=== PATIENT | female | born 1950 | race Caucasian/White ===

== ENCOUNTER 2024-10-20 14:37 | Inpatient (IN) | payer MEDICARE, OTHER ==
[~2024-10-20] VITALS: Ht 157.5 cm; Wt 59.8 kg
[2024-10-20 19:06] LABS: BASO # 0.1 10^3/uL (0.0-0.2); BASO % 1.0 % (0.0-1.0); EOS # 0.2 10^3/uL (0.0-0.5); EOS % 2.7 % (0.0-3.0); LYMPH # 1.7 10^3/uL (1.5-5.0); LYMPH % 22.7 % (24.0-44.0); MONO # 0.7 10^3/uL (0.0-0.8); MONO % 8.9 % (2.0-8.0); NEUTROPHILS # 4.7 10^3/uL (1.5-8.5); NEUTROPHILS % 64.6 % (36.0-66.0); PLATELET COUNT, AUTOMATED 289 10^3/uL (150-450)
[2024-10-20 19:26] LABS: INR 0.89
[2024-10-20 19:40] LABS: CALCIUM LEVEL 8.1 MG/DL (8.3-10.6); CARBON DIOXIDE LEVEL 28 MMOL/L (20-31); CHLORIDE LEVEL 104 MMOL/L (98-107); CREATININE FOR GFR 0.67 MG/DL (0.55-1.30); GLOMERULAR FILTRATION RATE > 90.0 (>39); POTASSIUM SERUM 4.2 MMOL/L (3.5-5.1); SODIUM LEVEL 141 MMOL/L (136-145)
[2024-10-20] MEDS ORDERED: GABA-1172 PO (20:06)
[2024-10-20] MEDS ORDERED: GABA-1171 PO (20:06)
[2024-10-20] MEDS ORDERED: MIRA3350 PO (20:06)
[2024-10-20] MEDS ORDERED: LIOT5TAB6 PO (20:06)
[2024-10-20] MEDS ORDERED: LEVO125T4 PO (20:06)
[2024-10-20] MEDS ORDERED: VYVA60CA PO (20:06)
[2024-10-20] MEDS ORDERED: FLUO40CA PO (20:10)
[2024-10-20] MEDS ORDERED: CALC-234 PO (20:10)
[2024-10-20] MEDS ORDERED: IBUP200T46 PO (20:10)
[2024-10-20] MEDS ORDERED: LAMO150T3 PO (20:10)
[2024-10-20] MEDS ORDERED: BISA10SU4 PR (20:10)
[2024-10-20] MEDS ORDERED: SUMA100T2 PO (20:11)
[2024-10-20] MEDS ORDERED: HOME MED LIST COMPLETE! XX SCH (20:15)
[2024-10-20] MEDS ORDERED: VYVA50CA4 PO (20:15)
[2024-10-20] MEDS ORDERED: BISACODYL 10 MG SUPP PR PRN (20:50)
[2024-10-20] MEDS ORDERED: NALOXONE INJ 0.4 MG/1 ML VIAL IV PRN (20:50)
[2024-10-20] MEDS ORDERED: MORPHINE 2 MG/ML 1 ML VIAL IV PRN (20:50)
[2024-10-20] MEDS ORDERED: GABAPENTIN 300 MG CAP PO SCH (21:00)
[2024-10-20 21:46] LABS: ALT/SGPT 24 U/L (7.0-40); AST/SGOT 27 U/L (<34); MAGNESIUM LEVEL 2.2 MG/DL (1.8-2.4)
[2024-10-20 21:49] LABS: THYROXINE (T4) 3.6 UG/DL (4.5-10.9)
[2024-10-20] MEDS: GABAPENTIN 400 MG CAP PO SCH (22:08)
[2024-10-20] MEDS: ACETAMINOPHEN *IV* 1,000 MG in IV 1 EA IV SCH (22:08)
[2024-10-20] MEDS: MORPHINE 4 MG/ML 1 ML VIAL IV PRN (22:17)
[2024-10-20 22:59] LABS: T UPTAKE 34.7 % (22.5-37.0)
[2024-10-21] VITALS (11 sets, daily range): BP systolic 111–144; BP diastolic 59–77; TEMP 97.2–97.6; O2SAT 91–99
[2024-10-21] MEDS: METHOCARBAMOL 1,000 MG/10 ML VIAL IV PRN (00:09)
[2024-10-21] MEDS ORDERED: LIOTHYRONINE 5 MCG PO SCH (06:00)
[2024-10-21] MEDS: LEVOTHYROXINE 125 MCG TABLET (0.125 MG) PO SCH (06:09)
[2024-10-21 06:37] LABS: PLATELET COUNT, AUTOMATED 284 10^3/uL (150-450)
[2024-10-21 06:51] LABS: ALT/SGPT 23.0 U/L (7.0-40); AST/SGOT 26.0 U/L (<34); CALCIUM LEVEL 8.3 MG/DL (8.3-10.6); CARBON DIOXIDE LEVEL 30.0 MMOL/L (20-31); CHLORIDE LEVEL 105.0 MMOL/L (98-107); CREATININE FOR GFR 0.71 MG/DL (0.55-1.30); GLOMERULAR FILTRATION RATE 88.6 (>39); MAGNESIUM LEVEL 2.2 MG/DL (1.8-2.4); POTASSIUM SERUM 4.3 MMOL/L (3.5-5.1); SODIUM LEVEL 141.0 MMOL/L (136-145)
[2024-10-21] MEDS: MIRALAX *UNIT DOSE* 17 GM PACKET PO SCH (08:00)
[2024-10-21] MEDS: FLUoxetine 20 MG CAP PO SCH (08:01)
[2024-10-21] MEDS: lamoTRIgine 100 MG TAB PO SCH (08:01)
[2024-10-21] MEDS: PANTOPRAZOLE 40MG VIAL IV SCH ×2 (08:50→20:15)
[2024-10-21] MEDS: CALCIUM CARBONATE 500 MG CHEW U/D PO ONE (08:50)
[2024-10-21] MEDS: KETOROLAC 30 MG/ML 1 ML VIAL IV SCH (08:51)
[2024-10-21] MEDS ORDERED: LIOTHYRONINE 25 MCG TAB PO SCH (09:00)
[2024-10-21] MEDS ORDERED: ENTER DRUG NAME HERE (PATIENT'S OWN MED) PO SCH (09:00)
[2024-10-21] MEDS: ACETAMINOPHEN *IV* 1,000 MG in IV 1 EA IV SCH (11:09)
[2024-10-21] MEDS: ROPIvacaine 0.5% 30ML VIAL PN ONE (14:20)
[2024-10-21] MEDS: dexAMETHasone 10 MG/1 ML VIAL PRES.FREE PN ONE (14:20)
[2024-10-21] MEDS ORDERED: HYDROMORPHONE HCL 0.5 MG/0.5 ML SYRINGE IV PRN (14:20)
[2024-10-21] MEDS: LIDOCAINE 1% SDV 5 ML VIAL PN ONE (14:20)
[2024-10-21] MEDS ORDERED: ONDANSETRON 4MG 2ML VIAL IV PRN (14:20)
[2024-10-21] MEDS ORDERED: dexAMETHasone 4 MG/ML 1 ML VIAL As Ordered ONE (14:35)
[2024-10-21] MEDS ORDERED: GLYCOPYRROLATE INJ 0.2 MG/ML 2 ML VIAL As Ordered ONE (14:35)
[2024-10-21] MEDS ORDERED: ONDANSETRON 4MG 2ML VIAL As Ordered ONE (14:35)
[2024-10-21] MEDS ORDERED: LIDOCAINE 2% 100 MG/5 ML SDV (FOR ANES.) As Ordered ONE (14:35)
[2024-10-21] MEDS: MIDAZOLAM INJ 2 MG/2 ML VIAL IV PRN (14:39)
[2024-10-21] MEDS ORDERED: KETOROLAC 30 MG/ML 1 ML VIAL As Ordered ONE (16:27)
[2024-10-21] MEDS: ASPIRIN 81 MG ENTERIC TABLET PO SCH (20:15)
[2024-10-22] VITALS (7 sets, daily range): BP systolic 116–146; BP diastolic 62–74; TEMP 97.2–97.6; O2SAT 92–96
[2024-10-22] MEDS: ceFAZolin SOD 1 GM in DEXTROSE 5% (D5W) ADV/MINI-BAG 50 ML IV SCH (00:24)
[2024-10-22 07:15] LABS: PLATELET COUNT, AUTOMATED 288 10^3/uL (150-450)
[2024-10-22 08:03] LABS: CALCIUM LEVEL 8.3 MG/DL (8.3-10.6); CARBON DIOXIDE LEVEL 27 MMOL/L (20-31); CHLORIDE LEVEL 102 MMOL/L (98-107); CREATININE FOR GFR 0.67 MG/DL (0.55-1.30); GLOMERULAR FILTRATION RATE > 90.0 (>39); POTASSIUM SERUM 5.0 MMOL/L (3.5-5.1); SODIUM LEVEL 138 MMOL/L (136-145)
[2024-10-22] MEDS: MORPHINE 4 MG/ML 1 ML VIAL IV PRN (16:33)
[2024-10-22] MEDS: DOCUSATE SODIUM 100 MG CAPSULE PO SCH (20:36)
[2024-10-22] MEDS: PANTOPRAZOLE 20 MG TAB PO SCH (20:36)
[2024-10-23 04:49] VITALS: BP 140/68; TEMP 97.1; O2SAT 96
[2024-10-23] MEDS: LIOTHYRONINE 5 MCG PO SCH (06:31)
[2024-10-23 07:01] LABS: PLATELET COUNT, AUTOMATED 278 10^3/uL (150-450)
[2024-10-23 07:26] LABS: CALCIUM LEVEL 8.4 MG/DL (8.3-10.6); CARBON DIOXIDE LEVEL 31.0 MMOL/L (20-31); CHLORIDE LEVEL 102.0 MMOL/L (98-107); CREATININE FOR GFR 0.77 MG/DL (0.55-1.30); GLOMERULAR FILTRATION RATE 80.4 (>39); POTASSIUM SERUM 4.4 MMOL/L (3.5-5.1); SODIUM LEVEL 140.0 MMOL/L (136-145)
[2024-10-23] MEDS: FLUCONAZOLE 100 MG TAB PO SCH (09:14)
[2024-10-23 12:55] VITALS: BP 140/67; TEMP 97.9; O2SAT 96
[2024-10-23] MEDS: ACETAMINOPHEN 500 MG TAB PO SCH (20:30)
[2024-10-23] MEDS: KETOROLAC TROMETHAMINE 10 MG TAB PO SCH (22:00)
[2024-10-24 06:13] VITALS: BP 126/65; TEMP 97.7; O2SAT 97
[2024-10-24 12:00] VITALS: BP 156/74; TEMP 97; O2SAT 97
[2024-10-24 20:44] VITALS: BP 154/108; TEMP 97.9; O2SAT 96
[2024-10-25 06:09] VITALS: BP 138/79; TEMP 97.9; O2SAT 95
[2024-10-25] MEDS ORDERED: COLA100C5 PO (08:00)
[2024-10-25] MEDS ORDERED: OXYC-517 PO (08:00)
[2024-10-25] MEDS ORDERED: FLUC100T3 PO (08:00)
[2024-10-25] MEDS ORDERED: ACET-683 PO (08:00)
[2024-10-25] MEDS ORDERED: ASPI81TAEC PO (08:00)
[2024-10-25] MEDS ORDERED: PANT20TA51 PO (08:00)
== END 2024-10-25 10:20 | DRG 494 ==
LOC: EDBD 14:37 → M ED 14:37 → M ED INP 20:50 → M MS5PR 10-21 01:07
PROVIDERS: ADMIT Internal Medicine; ATTEND Internal Medicine Nephrology
PROC: 0SSG04Z Reposition Left Ankle Joint with Internal Fixation Device, Open Approach (ICD-10-PCS; principal; 2024-10-21 15:00)
DX: S82.842A Displaced bimalleolar fracture of left lower leg, initial encounter for closed fracture (principal); W10.8XXA Fall (on) (from) other stairs and steps, initial encounter; Y92.9 Unspecified place or not applicable; K59.00 Constipation, unspecified; E03.9 Hypothyroidism, unspecified; M81.0 Age-related osteoporosis without current pathological fracture; Z98.41 Cataract extraction status, right eye; Z98.42 Cataract extraction status, left eye; Z79.890 Hormone replacement therapy; Z79.899 Other long term (current) drug therapy

== ENCOUNTER → 2024-11-04 | Outpatient (CLI) | payer MEDICARE, OTHER ==
[~2024-11-04] MED LIST: ACET-683 PO; ASPI81TAEC PO; BISA10SU4 PR; CALC-234 PO; COLA100C5 PO; FLUC100T3 PO; FLUO40CA PO; GABA-1171 PO; GABA-1172 PO; IBUP200T46 PO; LAMO150T3 PO; LEVO125T4 PO; LIOT5TAB6 PO; MIRA3350 PO; OXYC-517 PO; PANT20TA51 PO; SUMA100T2 PO; VYVA50CA4 PO; VYVA60CA PO
== END ==
LOC: M SOG 06:59
PROVIDERS: ATTEND Orthopaedic Surgery
DX: S82.842A Displaced bimalleolar fracture of left lower leg, initial encounter for closed fracture (principal); Z47.89 Encounter for other orthopedic aftercare

== ENCOUNTER → 2024-11-18 | Outpatient (CLI) | payer MEDICARE, OTHER | LOC: M SOG 06:58 | PROVIDERS: ATTEND Orthopaedic Surgery | DX: S82.842D Displaced bimalleolar fracture of left lower leg, subsequent encounter for closed fracture with routine healing (principal) ==

== ENCOUNTER → 2024-12-02 | Outpatient (CLI) | payer MEDICARE, OTHER | LOC: M SOG 06:57 | PROVIDERS: ATTEND Orthopaedic Surgery | DX: S82.842D Displaced bimalleolar fracture of left lower leg, subsequent encounter for closed fracture with routine healing (principal) ==

== ENCOUNTER → 2024-12-29 | Outpatient (CLI) | payer MEDICARE, OTHER | LOC: M SOG 07:29 | PROVIDERS: ATTEND Orthopaedic Surgery | DX: S82.842D Displaced bimalleolar fracture of left lower leg, subsequent encounter for closed fracture with routine healing (principal) ==